=== PATIENT | female | born 1985 ===

== ENCOUNTER 2022-03-25 12:15 | Emergency (ER) | payer OTHER, SELFPAY ==
[2022-03-25 12:20] VITALS: BP 132/78; PULSE 86; RESP 18; TEMP 37; O2SAT 99; BMI 31.8
[2022-03-25] MEDS: Ondansetron ODT 4 MG TAB.RAPDIS TRANSLINGU (12:27)
[2022-03-25] MEDS: Acetaminophen 325 MG TABLET 650 MG PO (12:27)
--- NOTE | 2022-03-25 14:38 | ED.DENTAL ---
HPI - Dental/Oral General Chief complaint: Dental/Oral Stated complaint: tooth pain Time Seen by Provider: 03/25/22 14:09 Source: patient Mode of arrival: ambulatory History of Present Illness HPI Narrative: 37-year-old female with no significant past medical history presenting to the ED complaining of suspected dental abscess, complaining of left-sided facial swelling and pain x4 days. Reports pain radiates to left ear and neck. Admits to known cavity to left back teeth. Denies known fever, chills, drainage from ear, hearing loss, difficulty swallowing, inability to swallow, pus drainage. Related Data Previous Rx's Medication Instructions Recorded acetaminophen 300 mg-codeine 30 mg 1 tab PO Q6H PRN pain, severe 3 03/25/22 tablet days #7 tabs amoxicillin 875 mg-potassium 1 tab PO BID 7 days #14 tabs 03/25/22 clavulanate 125 mg tablet ibuprofen 800 mg tablet 800 mg PO Q8H PRN pain #14 tabs 03/25/22 Allergies Allergy/AdvReac Type Severity Reaction Status Date / Time Sulfa (Sulfonamide Allergy Unknown UNKNOWN Unverified 01/28/20 19:20 Antibiotics) [SULFA (SULFONAMIDE ANTIBIOTICS)] Review of Systems Review of Systems: Constitutional: No Weight loss, No Fever, No Chills ENT/Mouth: +facial swelling, + Ear Pain, No Nasal Congestion, No Sinus Pain, No Hoarseness, + sore throat, No Rhinorrhea, No Swallowing Difficulty Cardiovascular: No Chest Pain, No SOB Respiratory: No Cough, No Sputum Gastrointestinal: No Nausea, No Vomiting, No Abdominal pain Genitourinary: No Dysuria, No Urinary Frequency, No Hematuria, No Flank Pain Musculoskeletal: No joint pain, No Myalgias, No Joint Swelling Skin: No Skin Lesions, No rash Neuro: No Weakness, No Numbness, No Paresthesias Yes all other systems are reviewed and are negative Constitutional: Constitutional: Reports as per [facility] Past Medical History Attestation statement: The following information was validated with the patient. Social History Social History Advance Directives: No Advance Directives Information Provided: Yes Physical Exam Vital Signs: Vital Signs: Last Vital Signs Temp 98.6 F 03/25/22 12:20 Pulse 86 03/25/22 12:20 Resp 18 03/25/22 12:20 BP 132/78 03/25/22 12:20 Pulse Ox 99 03/25/22 12:20 O2 Del Method 03/25/22 12:20 BMI result Body Mass Index 31.8 Const: General: cooperative, healthy appearing, no acute distress, well developed, alert and awake Orientation/consciousness: patient oriented x3 Limitations: no limitations HEENT: Other: + minimal left preauricular swelling with mild facial tenderness. No erythema/crepitus. No intraoral swelling/functions or induration noted. No dental tenderness or gingivitis. Head: Yes normal to inspection and Yes atraumatic Ears: hearing grossly normal bilaterally, external ears normal, TM's normal bilaterally, EAC's normal, mastoids normal and no periauricular adenopathy General nose exam: Normal external nose present Face and sinus: Yes normal facial exam Throat: Yes posterior oropharynx normal, Yes tonsils normal, Yes uvula midline, No peritonsillar mass, No uvula laterally displaced and No uvular edema Eyes: General: appearance normal, both eyes and all related structures EOM: EOMs intact bilaterally Neck: Neck: Yes normal visual inspection, Yes full ROM, Yes no lymphadenopathy, Yes no meningeal signs, Yes trachea midline, Yes supple and No anterior neck swelling Resp: Effort & Inspection: normal respiratory effort, not labored, no respiratory distress and no stridor Auscultation: clear to auscultation bilaterally and no wheezes Cardio: Rate: regular rate Heart sounds: S1 normal heart sound present and S2 normal heart sound present Skin: Rashes: no rashes Wounds: no wounds Neuro: General: patient oriented x3, tone normal and no meningeal signs Gait exam (Neuro): Normal gait present Extrem: General: Yes normal to inspection Medications Administered Discontinued Medications Generic Name Dose Route Start Last Admin Trade Name Brunoq PRN Reason Stop Dose Admin Acetaminophen 650 mg 03/25/22 12:24 03/25/22 12:27 Acetaminophen 325 Mg Tablet PO 03/25/22 12:25 650 mg ONCE ONE Administration Ondansetron HCl 4 mg 03/25/22 12:23 03/25/22 12:27 Ondansetron Odt 4 Mg Tab.Rapdis TRANSLINGU 03/25/22 12:24 4 mg ONCE ONE Administration MDM - Dental/Oral MDM Narrative Medical decision making narrative: 37-year-old female with no significant past medical history presenting to the ED complaining of suspected dental abscess, complaining of left-sided facial swelling and pain x4 days. On exam vital signs stable, NAD, nontoxic appearing, minimal left preauricular facial swelling noted. TMs WNL, mastoid WNL, no appreciable intraoral swelling/infection or neck swelling. No stridor, handling secretions. Concern for possible dental abscess vs ? Cellulitis. No evidence of [employer]. No evidence of airway compromise Plan: P.o. Decadron, antibiotics, pain control, close dentist follow-up Differential Diagnosis Differential diagnosis: Likely toothache Medical Records Attestation: I reviewed the patient's medical records. Lab Data Attestation: I reviewed the patient's lab results. Discharge Plan Discharge Clinical Impression: Dental abscess Patient Disposition: Home, Self-Care Instructions: Dental Abscess (ED) Additional Instructions: You may have a dental abscess/infection. Augmentin as an antibiotic please take as prescribed Your given a dose of an oral steroid this will help with swelling Tylenol #3 is an opiate pain medication, take only when pain is severe for the next 3 days. Additionally he should be taking ibuprofen. Call your dentist tomorrow for close follow-up. If symptoms persist or worsen, he develops increasing facial swelling, difficulty/inability to swallow, fever return to the ED Prescriptions: New amoxicillin-pot clavulanate 875-125 mg tablet 1 tab PO BID 7 Days Qty: 14 0RF acetaminophen-codeine 300-30 mg tablet 1 tab PO Q6H PRN (Reason: pain, severe) 3 Days Qty: 7 0RF ibuprofen 800 mg tablet 800 mg PO Q8H PRN (Reason: pain) Qty: 14 0RF Referrals: Maikel Diop DMD [Dentist] - Juliet Finley DMD [Dentist] - Carmine [place] DDS [Physician] - Stand Alone Forms: Work/School Release
[2022-03-25] MEDS: oxyCODONE HCl Immed Release 5 MG TABLET PO (15:16)
[2022-03-25] MEDS: dexAMETHasone sod phosphate 10 MG/ML VIAL IVPUSH (15:17)
== END 2022-03-25 15:20 | disposition home or self-care (01) ==
PROVIDERS: Emergency Provider Emergency Medicine; PCP Internal Medicine
DX: K04.7 Periapical abscess without sinus (principal); Z79.899 Other long term (current) drug therapy
CPT/HCPCS: 96374; 99283; 99284; J1100

== ENCOUNTER 2022-11-24 13:45 | Emergency (ER) | payer OTHER, SELFPAY ==
[2022-11-24 13:50] VITALS: BP 106/80; PULSE 106; O2SAT 100
[2022-11-24 13:59] VITALS: BP 129/66; PULSE 98; RESP 18; TEMP 37.1; O2SAT 99; BMI 36.0
--- NOTE | 2022-11-24 13:59 | ED.GENADULT ---
HPI - General Adult General Chief complaint: Dizziness Stated complaint: DIZZY S/P HEAVY DRINKING/COCAIN USE LAST NOC Time Seen by Provider: 11/24/22 14:49 Source: patient and EMS Mode of arrival: EMS Limitations: no limitations History of Present Illness HPI narrative: 37 yo female presenting to the ER via EMS for evaluation of dizziness, palpitations and lightheadedness that occurred today while she was shopping at [employer]. She states she drank heavily yesterday, including 20 nips of fireball. She woke up hungover today and had several episodes of diarrhea but no vomiting or abdominal pain. She went shopping and started to feel dizzy while walking around. EMS was called, IV established and she was started on IVF, brought to the ER for evaluation. Admitted to small amount of cocaine as well yesterday. She denied any chest pain. No current palpitations. Symptoms improving with fluids. MD complaint: dizziness, palpitations Onset (ago): hour(s) Location: head, chest and abdomen Radiation: non-radiation Severity: moderate Pain Consistency: now resolved Relieving factors: other (fluids) Exacerbating factors: movement Associated symptoms: weakness Treatments prior to arrival: other (IVF) Related Data Previous Rx's Medication Instructions Recorded acetaminophen 300 mg-codeine 30 mg 1 tab PO Q6H PRN pain, severe 3 03/25/22 tablet days #7 tabs amoxicillin 875 mg-potassium 1 tab PO BID 7 days #14 tabs 03/25/22 clavulanate 125 mg tablet ibuprofen 800 mg tablet 800 mg PO Q8H PRN pain #14 tabs 03/25/22 Allergies Allergy/AdvReac Type Severity Reaction Status Date / Time Sulfa (Sulfonamide Allergy Unknown UNKNOWN Unverified 01/28/20 19:20 Antibiotics) [SULFA (SULFONAMIDE ANTIBIOTICS)] Review of Systems Review of Systems: Yes all other systems are reviewed and are negative [facility] Social History Social History Advance Directives: No Advance Directives Information Provided: No Physical Exam ED Vital Signs: Vital Signs - 24 hr 11/24/22 13:59 Temperature 98.8 F Pulse Rate 98 Respiratory Rate 18 Blood Pressure 129/66 Pulse Oximetry 99 Oxygen Delivery Method Room Air BMI result Body Mass Index 36.0 Appearance: Alert. Oriented X3. No acute distress. Head: normocephalic, atraumatic. Eyes: Pupils equal, round and reactive to light. ENT: Pharynx normal. No tonsillar swelling or exudate. Neck: Normal inspection. Neck supple. CVS: Normal heart rate and rhythm. Pulses normal. Respiratory: No respiratory distress. Breath sounds normal. Abdomen: Soft and nontender. +BS x4 Skin: Skin warm and dry. Normal skin color. Normal skin turgor. No rashes. Extremities: No lower extremity edema. No joint swelling. Neuro/psych: Oriented X 3. No motor deficit. No sensory deficit. CN II-XII intact. Normal speech and cognition. Course Course Course Narrative: RME - 37 yo female with history of anxiety who presents to the ER for evaluation of recurrent episodes of dizziness, palpitations and feeling like she was going to pass out while she was shopping today. Multiple episodes of diarrhea today. No vomiting. Admits to drinking a sleeve of Fireball last night. Denies other drug use. EMS started a line and gave some fluids with improvement in her symptoms. Plan: labs, orthostatics, IVF Medications Administered Discontinued Medications Generic Name Dose Route Start Last Admin Trade Name Freq PRN Reason Stop Dose Admin Sodium Chloride 1,000 mls @ 999 mls/hr 11/24/22 14:15 11/24/22 16:01 Ns IVCONT 11/24/22 15:15 Infused .Q1H1M JOY Infusion Sodium Chloride 1,000 mls @ 999 mls/hr 11/24/22 15:00 11/24/22 16:01 Ns IVCONT 11/24/22 16:00 Infused .Q1H1M JOY Infusion Medical Decision Making Medical Decision Making MDM Narrative: 37 yo female presenting via EMS for dizziness, palpitations, diarrhea after heavy ETOH use and cocaine last night. VSS on arrival. She feels better with fluids. Lab workup performed showing mild leukocytosis, mildly low bicarb, c/w GI losses and mild metabolic acidosis. Isolated trace elevation of ALT without any other significant metabolic derangements. EKG with NSR. Neuro exam is nonfocal. She is tolerating PO. Patient was given 2L IVF. She feels symptomatically improved. her symptoms were most likely due to dehydration from her diarrhea and heavy ETOH use last night. Stable for d/c home with ongoing oral hydration and outpatient follow up PRN. counseled on etoh and drug abuse. declining need for recovery advocate/addiction medicine. stable for d/c. Differential Diagnosis Differential Diagnoses: The differential diagnosis associated with the presentation includes dehydration, alcohol intoxication, alcohol withdrawal, polysubstance abuse, electrolyte derangement, thyroid abnormality, orthostatic hypotension Admission/Observation Consideration of admission/observation: Escalation of care including admission/observation considered considered observation in this patient with dehydration and recurrent dizziness Lab Data MDM Lab Attestation statement: I reviewed the patient's lab results. mild leukocytosis, metabolic acidosis 2/2 gi loss 11/24/22 14:09 11/24/22 14:09 Labs: Lab Results 11/24/22 11/24/22 Range/Units 14:09 14:09 WBC 11.2 H (4.8-10.8) X10*3/uL RBC 4.39 (4.20-5.50) X10*6/uL Hgb 13.4 (12.0-16.0) g/dl Hct 39.8 (37.0-47.0) % MCV 90.7 (80.0-98.0) fL MCH 30.5 (27.0-33.0) pg MCHC 33.7 (31.0-35.0) g/dl RDW 12.0 (11.0-16.0) % Plt Count 332 (160-400) X10*3/uL MPV 10.0 (9.4-12.3) fL Immature Gran % (Auto) 0.3 (0.0-0.4) % Neut % (Auto) 66.9 (45-73) % Lymph % (Auto) 24.3 (20-40) % [place] % (Auto) 6.7 (2-11) % Eos % (Auto) 1.4 (0-4) % Baso % (Auto) 0.4 (0-2) % Lymph # (Auto) 2.7 (1.2-4.9) X10*3/uL [place] # (Auto) 0.8 (0.1-1.2) X10*3/uL Eos # (Auto) 0.2 (0.0-0.4) X10*3/uL Baso # (Auto) 0.0 (0.0-0.2) X10*3/uL Abs Immat Gran (auto) 0.03 (0.00-0.03) X10*3/uL Absolute Neuts (auto) 7.5 (2.0-8.3) x10*3/uL Absolute Nucleated RBC 0.000 (0.0-0.012) X10*3/uL Nucleated RBC % (auto) 0.0 (0.0-0.2) /100WBC Sodium 140 (135-145) mmol/L Potassium 3.9 (3.3-5.1) mmol/L Chloride 112 H (96-108) mmol/L Carbon Dioxide 19 L (22-29) mmol/L Anion Gap 13 (12-20) BUN 10 (9-16) mg/dL Creatinine 0.77 (0.5-1.4) mg/dL Estim Creat Clear Calc 114.2 Estimated GFR > 60 Random Glucose 92 (60-115) mg/dL Calcium 9.6 (8.4-10.2) mg/dL Magnesium 2.0 (1.6-2.6) mg/dL Total Bilirubin 0.3 (0.0-1.0) mg/dL Direct Bilirubin 0.1 (0.0-0.5) mg/dL AST 28 (5-31) U/L ALT 34 H (0-31) U/L Alkaline Phosphatase 93 (39-117) U/L Total Protein 7.1 (6.5-8.0) g/dL Albumin 4.1 (3.5-5.0) g/dL Independent Interpretation I performed an independent interpretation of an: EKG Interpretation: normal sinus rhythm, hr 95 bpm, normal SC interval no PVCs, no ST segment elevations or depressions Independent Historian Clinical information obtained from an independent historian. History obtained from or confirmed by: EMS Prescription Management I considered prescription management with: Other (benzo) Chronic Conditions Patient?s care impacted by: Other (etoh abuse) Social Determinants Patient?s care significantly limited by Social Determinants of Health including: Other Social Determinant of Health Critical Care Time Critical Care Time Critical Care Time: No Discharge Plan Discharge Clinical Impression: Acute dehydration Patient Disposition: Home, Self-Care Instructions: Dehydration (ED) Additional Instructions: your labs and ekg today were unremarkable rest and drink plenty of fluids today recommend imodium or pepto bismol if diarrhea persists. If you develop new or worsening symptoms call 911 or come back to the ER for further evaluation. Prescriptions: No Action amoxicillin-pot clavulanate 875-125 mg tablet 1 tab PO BID 7 Days Qty: 14 0RF acetaminophen-codeine 300-30 mg tablet 1 tab PO Q6H PRN (Reason: pain, severe) 3 Days Qty: 7 0RF ibuprofen 800 mg tablet 800 mg PO Q8H PRN (Reason: pain) Qty: 14 0RF Interventions: ED Discharge Assessment Last Done: 11/24/22 16:03 Discharge Date/Time: 11/24/22 16:03
--- NOTE | 2022-11-24 14:02 | ECG_ITS ---
Test Reason : DIZZINESS Blood Pressure : / mmHG Vent. Rate : 095 BPM Atrial Rate : 095 BPM P-R Int : 166 ms QRS Dur : 086 ms QT Int : 368 ms P-R-T Axes : 070 074 043 degrees QTc Int : 462 ms Normal sinus rhythm Normal ECG No previous ECGs available Referred By: Nasra Triana Electronically Signed By:ERIK DUCKWORTH MD
[2022-11-24] MEDS: 0.9 % Sodium Chloride 1,000 ML 999 ML IVCONT ×2 (14:16→14:59)
[2022-11-24 14:21] LABS: MANUAL DIFF FLAG NO
[2022-11-24 14:25] LABS: Basophils Percent Auto 0.4 % (0-2); Eosinophils Absolute Auto 0.2 X10*3/uL (0.0-0.4); Eosinophils Percent Auto 1.4 % (0-4); Hematocrit 39.8 % (37.0-47.0); Hemoglobin 13.4 g/dl (12.0-16.0); Imm Gran Abs Auto 0.03 X10*3/uL (0.00-0.03); Imm Gran Pct Auto 0.3 % (0.0-0.4); Lymphocytes Absolute Auto 2.7 X10*3/uL (1.2-4.9); Lymphocytes Percent Auto 24.3 % (20-40); Mean Corpuscular HGB Conc 33.7 g/dl (31.0-35.0); Mean Corpuscular Hemoglobin 30.5 pg (27.0-33.0); Mean Corpuscular Volume 90.7 fL (80.0-98.0); Monocytes Absolute Auto 0.8 X10*3/uL (0.1-1.2); Monocytes Percent Auto 6.7 % (2-11); Neutrophils Absolute Auto 7.5 x10*3/uL (2.0-8.3); Neutrophils Percent Auto 66.9 % (45-73); Platelet Count 332 X10*3/uL (160-400); Red Blood Count 4.39 X10*6/uL (4.20-5.50); White Blood Count 11.2 X10*3/uL (4.8-10.8)
[2022-11-24 14:42] LABS: Alanine Aminotransferase 34 U/L (0-31); Albumin Level 4.1 g/dL (3.5-5.0); Alkaline Phosphatase 93 U/L (39-117); Anion Gap 13 (12-20); Aspartate Amino Transferase 28 U/L (5-31); Bilirubin Direct 0.1 mg/dL (0.0-0.5); Bilirubin Total 0.3 mg/dL (0.0-1.0); Blood Urea Nitrogen 10 mg/dL (9-16); Calcium 9.6 mg/dL (8.4-10.2); Carbon Dioxide 19 mmol/L (22-29); Chloride 112 mmol/L (96-108); Creatinine Clr Calc Pharmacy 114.2; Estimated Glomerular Filt Rate > 60; Glucose Random 92 mg/dL (60-115); Potassium 3.9 mmol/L (3.3-5.1); Sodium 140 mmol/L (135-145); Total Protein 7.1 g/dL (6.5-8.0)
== END 2022-11-24 16:03 | disposition home or self-care (01) ==
PROVIDERS: Physician Assistant; Emergency Provider Student in an Organized Health Care Education/Training Program
DX: R42 Dizziness and giddiness (principal); E86.0 Dehydration
CPT/HCPCS: 36415; 80048; 80076; 83735; 85025; 93005; 96360; 96361; 99283; 99284

== ENCOUNTER → 2022-11-24 14:02 | Outpatient (BNV) | payer OTHER, SELFPAY | PROVIDERS: Emergency Provider Student in an Organized Health Care Education/Training Program; Visit Provider Internal Medicine Cardiovascular Disease | DX: R42 Dizziness and giddiness (principal) | CPT/HCPCS: 93010 ==